=== PATIENT | female | born 1990 | race Caucasian/White ===

== ENCOUNTER 2022-04-01 09:18 | Emergency (ER) | payer OTHER ==
[~2022-04-01] VITALS: Ht 160 cm; Wt 116.2 kg
[2022-04-01] MEDS ORDERED: AMOX TR-K CLV1 EAC1 PO (09:47)
--- OUTSIDE RECORDS SUMMARY | 2022-04-01 10:27 | XMS ---
PreManage Notification: WILIAM ARANGO Security Edi Coordinator Events No recent Security Events currently on file [facility] There are no care providers on record at this time. [facility] has no Care Guidelines for this patient. Chantal VISIT COUNT (12 MO.) 1 [facility] TOTAL 1 NOTE: Visits indicate total known visits. ED/UCC VISIT TRACKING (12 MO.) 04/01/2022 09:20 [facility] [place] TYPE: Emergency COMPLAINT: - SWOLLEN JAW INPATIENT VISIT TRACKING (12 MO.) No inpatient visits to display in this time frame [email or web address]
== END 2022-04-01 10:15 | disposition home or self-care (01) ==
LOC: ED 09:18 → EDBD 09:20 → ED 10:15
DX: I88.9 Nonspecific lymphadenitis, unspecified (principal)
CPT/HCPCS: 99283